=== PATIENT | male | born 1960 | race Hispanic/Latino ===

== ENCOUNTER 2024-11-05 11:20 | Emergency (ER) | payer SELFPAY ==
[2024-11-05 11:28] VITALS: BP 154/82
--- NOTE | 2024-11-05 11:55 | ED.GENMED ---
History of Present Illness
<Masha Morales PA-C - Last Filed: 11/05/24 22:00>
General
Chief Complaint: Skin Problem
Source: patient
Exam Limitations: none
Time Seen by Provider: 11/05/24 11:37
Nursing documentation reviewed up to this point in time: agreed with
History of Present Illness
History of Present Illness:
64-year-old male with no past medical history presents emergency department today with a laceration noted to the left ring finger. Patient reports that last night around 6 PM, patient was working on the back of a car and reports that the rear
fender of his car that he was working on for work broke off and fell, crushing his fingers in between the tire and the fender. Patient reports that since last night, he has had persistent pain and bleeding from the laceration. He notes that his
fingers have also started to swell. He denies any loss of sensation, paresthesias in fingers. Denies any difficulty moving his fingers. He states that he is unsure when his last tetanus vaccination was. He states that he has no medical problems,
has no allergies to any medications. He denies any other injuries
Past History
<Masha Morales PA-C - Last Filed: 11/05/24 22:00>
Past History
ED Past Medical History: None
ED Past Surgical History: None
Social History
Living: with family
Review of Systems
<Masha Morales PA-C - Last Filed: 11/05/24 22:00>
Review of Systems
All Other Systems: ROS reviewed and negative except as documented in HPI and ROS
Phy Exam
<Masha Morales PA-C - Last Filed: 11/05/24 22:00>
Physical Exam
Physical Exam:
General: Patient is well appearing and in no acute distress; non-toxic
Skin: Warm and dry, 1.5 cm laceration and swelling noted between the left DIP and PIP
Head: Normocephalic, atraumatic
Eyes: Sclera non-icteric. EOMs intact.
Cardiac: Regular rate
Pulm: Normal respiratory effort
Peripheral Vascular: 2+ dorsalis pedis and posterior tibial pulses bilaterally
Musculoskeletal: Tenderness to palpation along the left 3rd and 4th finger. No tenderness over the left metacarpals, left carpal bones
Neuro: CN II-XII intact, no focal neurologic deficits. Sensation intact bilaterally.
Psychiatric: Appropriate mood and affect.
Course
<Masha Morales PA-C - Last Filed: 11/05/24 22:00>
Orders/Labs/Results
Orders:
Orders
11/05/24 12:01
CR Hand - Left Min 3 Views Urgent
Reason For Exam: left middle and ring finger crush injury
11/05/24 15:00
Tetanus/Diphth/Acelpertussis [Adacel] 0.5 ml IM .ONCE ONE
Vital Signs
Initial and Last Documented VS:
Initial Vital Signs
Temp Pulse Resp BP Pulse Ox
98.4 F 50 18 154/82 98
11/05/24 11:28 11/05/24 11:28 11/05/24 11:28 11/05/24 11:28 11/05/24 11:28
Last Documented Vital Signs
Temp Pulse Resp BP Pulse Ox
98.4 F 50 18 154/82 98
11/05/24 11:28 11/05/24 11:28 11/05/24 11:28 11/05/24 11:28 11/05/24 11:28
<Jason Longoria DO - Last Filed: 11/05/24 22:10>
Orders/Labs/Results
Orders:
Orders
11/05/24 12:01
CR Hand - Left Min 3 Views Urgent
Reason For Exam: left middle and ring finger crush injury
11/05/24 15:00
Tetanus/Diphth/Acelpertussis [Adacel] 0.5 ml IM .ONCE ONE
Vital Signs
Initial and Last Documented VS:
Initial Vital Signs
Temp Pulse Resp BP Pulse Ox
98.4 F 50 18 154/82 98
11/05/24 11:28 11/05/24 11:28 11/05/24 11:28 11/05/24 11:28 11/05/24 11:28
Last Documented Vital Signs
Temp Pulse Resp BP Pulse Ox
98.4 F 50 18 154/82 98
11/05/24 11:28 11/05/24 11:28 11/05/24 11:28 11/05/24 11:28 11/05/24 11:28
Procedures
<Masha Morales PA-C - Last Filed: 11/05/24 22:00>
Laceration Closure
posterior left fourth finger:
Status of Wound: clean
Size of Wound in cm: 4
Description of Wound Edges: sharp
Preparation: cleaned with saline
Anesthesia: 1% Lidocaine
Revision/Debridement: minor revision
Wound exploration: explored to base- no FB
Type of Closure: single layer closure
Skin Closure Material: 4-0 nylon
Number of sutures: 4
<TRINA Neely Last Filed: 11/05/24 22:00>
MDM/Problems Addressed
Differential Diagnosis Includes:
phalanx fracture, finger laceration, abrasion, hematoma
MDM/Problems Addressed:
64-year-old female presents emergency department today with concerns of laceration to the left ring finger following a crush injury. He was working on a car last night. X-ray reveals a nondisplaced fracture of the middle phalanx of the left little
finger as well as a small radiopaque soft tissue foreign body. I suspect the foreign body is older as patient has no open puncture wound or laceration over the area. Patient was placed in splints for the fracture. Patient was placed on
antibiotics. I stressed the patient importance of following up with hand surgery. Patient stable for discharge
<Mahsa Morales PA-C - Last Filed: 11/05/24 22:00>
*Pulse Oximetry
Patient hypoxic: no
*Critical Care Note
Total Time (30-74mins, 75-104mins- exclusive of procedures): Not Applicable
Data Reviewed
Review of Other/Old Records Reveals: Records (Reviewed. Physician documentation from 03/05/2017 patient seen for suture removal)
Source: patient and records
ED Attending Note
<Masha Morales PA-C - Last Filed: 11/05/24 22:00>
-
Portions of this chart may have been created with voice recognition software.� Occasional wrong word or��sound alike� substitutions may have occurred due to the inherent limitations of voice recognition software.
<Jason Longoria DO - Last Filed: 11/05/24 22:10>
ED Attending Note
Patient seen and examined by attending physician: Yes
I performed a history and physical exam of patient and discussed management with resident, I reviewed resident's note and agree with documented findings and plan of care.: Yes
ED Attending Note:
I have reviewed and agree with history treatment plan by Masha Morales PA-C. My exam revealed 64-year-old male with laceration of left fourth finger, x-ray consistent with fracture of left fifth middle phalanx. Neurovascularly intact, will
treat with Keflex. Stable for discharge.
Discharge Plan
Departure
Patient Disposition: Home (Routine Discharge)
Date of Disposition: 11/05/24
Time of Disposition: 15:38
Patient with high blood pressure during this ER visit?: Yes
Condition: Good
Discharge Problem:
Laceration of finger, Fracture of middle phalanx of left little finger
Instructions: Finger Fracture ED, BLOOD PRESSURE
Prescriptions:
New
cephalexin 500 mg capsule
500 mg PO QID 7 Days Qty: 28 0RF
No Action
hydrocodone-acetaminophen 1 TABLET tablet
1 tab PO Q4HPRN PRN (Reason: severe pain) Qty: 15 0RF
cephalexin 500 MG capsule
500 mg PO BID Qty: 19 0RF
clindamycin HCl 300 MG capsule
300 mg PO QID Qty: 28 0RF
Referrals:
NONE,* [Family Provider] -
Aguilar Almazan MD [Active] - Call in 1-3 days for appt
Stand Alone Forms: Return to Work
Activity Restrictions/Additional Instructions:
4 stitches were placed. Please report to your primary care provider, urgent care, or the emergency department to have your stitches removed in 10 days. These keep the wound dry for 24 hours, after 24 hours, you can let mild soapy water run over
the wound. Please not scrub the wound. Please return to emergency department if experience signs of infection such as purulent drainage from the wound, redness or swelling surrounding the wound, fevers or chills.
Keflex has been sent to your pharmacy. You can take 1 tablet 4 times daily for 7 days.
Your tetanus has been updated.
Your hand x-ray reveals a fracture of the pinky finger. Please keep the splint on. There was also a foreign body noted to the ventral aspect of the proximal phalanx of the left middle finger but there is no puncture would or overlying wound there
so I suspect this is old. It is very important that you follow up with hand surgery, please call the attached number to schedule an appointment.
Interventions
Interventions:
*Risk Screen - Suicide Last Done: 11/05/24 11:28
*General Assessment Last Done: 11/05/24 11:28
*Neglect/Abuse Screening Last Done: 11/05/24 11:28
ED- Fall Risk Assessment Last Done: 11/05/24 15:45
*ED COVID-19 Vaccine History Last Done: 11/05/24 11:51
*Nursing Disposition Last Done: 11/05/24 15:45
ED-Skin Assessment Last Done: 11/05/24 11:49
Discharge Date and Time
Discharge Date/Time: 11/05/24 15:45
Print Language: [place]
[2024-11-05] MEDS: ADACEL 0.5 ML IM (14:44)
== END 2024-11-05 15:45 | disposition home or self-care (01) ==
LOC: EMR 11:20
PROVIDERS: EMERGENCY PHYSICIAN Emergency Medicine
DX: S61.215A Laceration without foreign body of left ring finger without damage to nail, initial encounter (principal); W23.0XXA Caught, crushed, jammed, or pinched between moving objects, initial encounter; Z23 Encounter for immunization
CPT/HCPCS: 12002; 90471; 99283; 73130; 90715

== ENCOUNTER 2024-11-14 10:16 | Emergency (ER) | payer SELFPAY ==
[2024-11-14 10:23] VITALS: BP 157/85
--- NOTE | 2024-11-14 11:33 | ED.GENMED ---
History of Present Illness
<Masha Morales PA-C - Last Filed: 11/14/24 20:06>
General
Chief Complaint: Wound Check/Suture Removal
Source: patient
Exam Limitations: none
Time Seen by Provider: 11/14/24 11:11
Nursing documentation reviewed up to this point in time: agreed with
History of Present Illness
History of Present Illness:
64-year-old male with no past medical history presents emergency department today for encounter for suture removal. Patient was seen here in emergency department by me on November 05 for a crush injury between a tire and fender of the truck.
Patient states that he has had some pain with range of motion but states that he has had no redness or swelling, no purulent drainage noted no signs of infection. Patient states that he presented to his primary and they refused to take the stitches
out. Patient did endure a phalanx fracture during this injury. Patient states that he has not followed up with hand surgery or call the office and he also lost his insurance card. He denies loss of sensation in his finger. He does feel that his
range of motion has decreased.
Past History
<Masha Morales PA-C - Last Filed: 11/14/24 20:06>
Past History
ED Past Medical History: None
ED Past Surgical History: None
Social History
Living: with family
Review of Systems
<Masha Morales PA-C - Last Filed: 11/14/24 20:06>
Review of Systems
All Other Systems: ROS reviewed and negative except as documented in HPI and ROS
Phy Exam
<Masha Morales PA-C - Last Filed: 11/14/24 20:06>
Physical Exam
Physical Exam:
General: Patient is well appearing and in no acute distress; non-toxic
Skin: Warm and dry, no rashes or lesions
Head: Normocephalic, atraumatic
Eyes: Sclera non-icteric. EOMs intact.
Cardiac: Regular rate
Pulm: Normal respiratory effort
Musculoskeletal: Full ROM of left phalanges. Mild swelling noted to left 5th finger. Good flexor and extensor strength against resistance.
Neuro: CN II-XII intact, no focal neurologic deficits.
Psychiatric: Appropriate mood and affect.
Course
<Masha Morales PA-C - Last Filed: 11/14/24 20:06>
Orders/Labs/Results
Orders:
Orders
11/14/24 11:53
CR Hand - Left 2 Views Urgent
Comment:
Reason For Exam: persistent left 5th and left middle finger pain
11/14/24 11:54
Ibuprofen [Motrin] 400 mg PO NOW STA
Vital Signs
Initial and Last Documented VS:
Initial Vital Signs
Temp Pulse Resp BP Pulse Ox
98.0 F 60 18 157/85 98
11/14/24 10:23 11/14/24 10:23 11/14/24 10:23 11/14/24 10:23 11/14/24 10:23
Last Documented Vital Signs
Temp Pulse Resp BP Pulse Ox
98.0 F 60 18 157/85 98
11/14/24 10:23 11/14/24 10:23 11/14/24 10:23 11/14/24 10:23 11/14/24 10:23
<Valerie Larson MD - Last Filed: 11/14/24 12:15>
Orders/Labs/Results
Orders:
Orders
11/14/24 11:53
CR Hand - Left 2 Views Urgent
Comment:
Reason For Exam: persistent left 5th and left middle finger pain
11/14/24 11:54
Ibuprofen [Motrin] 400 mg PO NOW STA
Vital Signs
Initial and Last Documented VS:
Initial Vital Signs
Temp Pulse Resp BP Pulse Ox
98.0 F 60 18 157/85 98
11/14/24 10:23 11/14/24 10:23 11/14/24 10:23 11/14/24 10:23 11/14/24 10:23
Last Documented Vital Signs
Temp Pulse Resp BP Pulse Ox
98.0 F 60 18 157/85 98
11/14/24 10:23 11/14/24 10:23 11/14/24 10:23 11/14/24 10:11/14/24 10:23
<Masha Morales PA-C - Last Filed: 11/14/24 20:06>
MDM/Problems Addressed
Differential Diagnosis Includes:
encounter for suture removal
MDM/Problems Addressed:
64 y/o male presents to the emergency department for suture removal. He had a crush injury to his fingers 9 days ago. He notes persistent pain and he feels a decreased ROM in his fingers.
Sutures removed. Will repeat x-ray and reassess.
X-ray shows fracture involving the phalanx of the left pinky finger unchanged. Did advise patient to continue to wear splint. Did stressed the patient that he should be seen in follow-up with hand surgery to help to continue to monitor his healing
especially in light of perceived decreased range of motion. Patient expressed understanding and states that he will go to the office to schedule an appointment after leaving the ER. Patient stable for discharge.
Chronic conditions affecting care:
n/a
<Masha Morales PA-C - Last Filed: 11/14/24 20:06>
*Pulse Oximetry
Patient hypoxic: no
*Critical Care Note
Total Time (30-74mins, 75-104mins- exclusive of procedures): Not Applicable
Data Reviewed
Review of Other/Old Records Reveals: Records (Reviewed my note from 11/05/2024 where patient was seen initially for his crush injury) and Discharge Summary (no discharge summaries to review )
Source: patient and records
<Masha Morales PA-C - Last Filed: 11/14/24 20:06>
Patient Management
Escalation/DeEscalation of care consider admission/obs:
admit not indicated
ED Attending Note
<Masha Morales PA-C - Last Filed: 11/14/24 20:06>
-
Portions of this chart may have been created with voice recognition software.� Occasional wrong word or��sound alike� substitutions may have occurred due to the inherent limitations of voice recognition software.
<Valerie Larson MD - Last Filed: 11/14/24 12:15>
ED Attending Note
Patient seen and examined by attending physician: Yes
I performed the substantive portion of visit, reviewed & personally made and approve the management plan that is documented in note by myself or MIMI.: Yes
ED Attending Note:
I have seen and evaluated the patient with a [id number] encounter. I have spoken to the [PA] and involved in the medical history, the physical exam, medical decision making.
Evaluation and management service: agree unless noted differently below.
Results interpretation: agree unless noted differently below.
Patient is a 64-year-old man presenting to the emergency department for removal of sutures. Per chart review patient came to the emergency department for crush injury is found to have fractures as well as a laceration. He states that he called
orthopedic surgery for removal and they told him to come back to the emergency department to get it removed as they did not place it. Patient fortunately has not followed up with orthopedic surgery requiring his finger fractures. On evaluation
patient did have sutures that were removed by the PA. The wound site is clean dry and intact. No signs of infection. He does have ongoing pain and states that the pain has not improved. Concern for new fracture versus worsening fracture. Will
obtain x-ray here. I did emphasize the importance of following up with orthopedic surgery for follow-up. Patient will call today for an appointment.
Discharge Plan
Departure
Patient Disposition: Home (Routine Discharge)
Date of Disposition: 11/14/24
Time of Disposition: 13:12
Patient with high blood pressure during this ER visit?: Yes
Condition: Good
Discharge Problem:
Fracture of middle phalanx of finger
Instructions: Hand fracture, Wound Care (DC), BLOOD PRESSURE
Prescriptions:
No Action
hydrocodone-acetaminophen 1 TABLET tablet
1 tab PO Q4HPRN PRN (Reason: severe pain) Qty: 15 0RF
cephalexin 500 MG capsule
500 mg PO BID Qty: 19 0RF
clindamycin HCl 300 MG capsule
300 mg PO QID Qty: 28 0RF
cephalexin 500 mg capsule
500 mg PO QID 7 Days Qty: 28 0RF
Referrals:
Aguilar Almazan MD [Active] - Call in 1-3 days for appt
UNKNOWN - PT DOES,NOT KNOW [Family Provider] -
Stand Alone Forms: Return to Work
Activity Restrictions/Additional Instructions:
Your x-rays are unchanged. Please continue to wear the splint on your left pinky finger which is broken.
Please keep your wounds clean and dry. You can use mild soapy water.
Please call the attached number to schedule an appointment to see hand surgery in follow-up. This is very important in order to continue to monitoring the healing of your fingers.
PLEASE RETURN EMERGENCY DEPARTMENT SHOULD YOU DEVELOP THE INABILITY TO MOVE YOUR FINGERS, FEVERS OR CHILLS, PURULENT DRAINAGE FROM YOUR FINGER, SURROUNDING REDNESS, CHEST PAIN, SHORTNESS OF BREATH, DIZZINESS, LIGHTHEADEDNESS, OR ANY OTHER SIGNS OR
SYMPTOMS WORRISOME TO YOU.
Interventions
Interventions:
*Risk Screen - Suicide Last Done: 11/14/24 10:17
*General Assessment Last Done: 11/14/24 10:17
*Neglect/Abuse Screening Last Done: 11/14/24 10:17
ED- Fall Risk Assessment Last Done: 11/14/24 13:42
*ED COVID-19 Vaccine History Last Done: 11/14/24 13:42
*Nursing Disposition Last Done: 11/14/24 13:42
ED-Skin Assessment Last Done: 11/14/24 13:42
Discharge Date and Time
Discharge Date/Time: 11/14/24 13:43
Print Language: FRENCH
[2024-11-14] MEDS: MOTRIN 400 MG PO (12:00)
== END 2024-11-14 13:43 | disposition home or self-care (01) ==
LOC: EMR 10:16
PROVIDERS: EMERGENCY PHYSICIAN Student in an Organized Health Care Education/Training Program
DX: S62.627A Displaced fracture of middle phalanx of left little finger, initial encounter for closed fracture (principal); W23.0XXA Caught, crushed, jammed, or pinched between moving objects, initial encounter; Z59.71 Insufficient health insurance coverage
CPT/HCPCS: 99282; 73120